=== PATIENT | female | born 1970 | race Caucasian/White ===

== ENCOUNTER 2019-03-06 08:24 | Day surgery (SDC) | payer OTHER ==
[2019-03-04 17:08] VITALS: BMI 35.9
[2019-03-06] MEDS ORDERED: PROPOFOL 20 ML ONE ×2 (10:51)
[2019-03-06] MEDS ORDERED: LIDOCAINE HCL 1%, 10 MG/ML (20ML VIAL) ONE ×2 (10:51→11:01)
[2019-03-06] MEDS ORDERED: MIDAZOLAM HCL 2 MG/2 ML SINGLE DOSE VIAL ONE (10:51)
--- NOTE | 2019-03-06 10:54 | HP ---
History & Physical Update - History History: No Change - Physical Physical: No Change - Assessment Assessment: No Change - Plan Plan: No Change
[2019-03-06] MEDS ORDERED: KETOROLAC TROMETHAMINE 30 MG/1 ML VIAL ONE (10:55)
[2019-03-06] MEDS ORDERED: DEXAMETHASONE SOD PHOSPHATE 4 MG/1 ML VIAL ONE (10:55)
[2019-03-06] MEDS ORDERED: CLINDAMYCIN PHOSPHATE 600 MG/4 ML VIAL ONE ×2 (10:55→11:11)
[2019-03-06] MEDS ORDERED: LIDOCAINE HCL/PF 2% SDV 5ML VIAL ONE (10:56)
[2019-03-06] MEDS ORDERED: CLINDAMYCIN 900 MG PREMIX BAG IVPB ONE (11:15)
[2019-03-06] MEDS ORDERED: LIDOCAINE HCL 1%, 10 MG/ML (20ML VIAL) NR ONE ×2 (11:20)
[2019-03-06] MEDS ORDERED: PROMETHAZINE HCL 25 MG/1 ML VIAL IVPUSH PRN (11:52)
[2019-03-06] MEDS ORDERED: oxyCODONE HCL 5 MG TABLET PO PRN (11:52)
[2019-03-06] MEDS ORDERED: ONDANSETRON 4 MG/2 ML VIAL IVPUSH PRN (11:52)
[2019-03-06] MEDS ORDERED: LACTATED RINGERS SOLUTION 1,000 ML IV SCH (12:00)
[2019-03-06] MEDS ORDERED: ACETAMINOPHEN 325 MG TABLET (FP) ONE (13:15)
--- NOTE | 2019-03-06 13:23 | OP ---
DATE OF OPERATION: 03/06/2019 PREOPERATIVE DIAGNOSIS: Right breast intraductal papilloma. POSTOPERATIVE DIAGNOSIS: Right breast intraductal papilloma. PROCEDURE: Right breast wire localized excisional biopsy. SURGEON: Viktoria Frederick MD ANESTHESIA: General. ESTIMATED BLOOD LOSS: Minimal. COMPLICATIONS: None. This is a sterile procedure. INDICATIONS: Patient had a recent biopsy of the outer part of the right breast that showed an intraductal papilloma. My recommendation was an excision. The procedure was discussed with all of her questions answered. PROCEDURE IN DETAIL: Patient was brought to [facility] in [place], taken to breast imaging where a wire was used to localize the clip in the lateral part of the right breast. She was then brought up to the operating room, and after induction of general anesthesia and IV antibiotics, the right breast was prepped and draped in the usual sterile fashion. The area on the lower outer right breast was anesthetized with 1% lidocaine without epinephrine. A radial incision was made in the lower outer right breast, and a wire was used as a guide to get down to the area. This was excised en bloc and sent as a right breast excisional mass for specimen radiograph. Hemostasis assured with electrocautery. The specimen radiograph showed the clip and wire to be intact within the specimen. This was then sent to Pathology for permanent second. Once hemostasis was assured, the parenchyma was approximated with interrupted 2-0 Vicryl, skin approximated with interrupted 3-0 Vicryl, running 4-0 Prolene. A sterile dressing with Tegaderm and 4 x 4's was applied. She tolerated the procedure well, extubated on the operating room table, taken to recovery in good condition. Olga [id number]
[2019-03-06] MEDS ORDERED: ACETAMINOPHEN 325 MG TABLET (FP) PO PRN (14:57)
[2019-03-06 16:18] VITALS: PULSE 80; TEMP 97.8
[2019-03-06 16:43] VITALS: BP 120/70
--- NOTE | 2019-03-11 12:32 | PATH ---
Surgical Pathology Report Patient Name: YOKASTA RUANO Med. Rec. #: [id number] /Age/Gender: 1970 (Age: 48) / F Account: [id number] Location: [facility] SURGICAL Taken: 03/06/2019 Received: 03/06/2019 Reported: 03/11/2019 Physicians: Viktoria Frederick M.D. Specimen(s) Received RIGHT BREAST EXCISION Clinical History Right breast excision of mass Final Diagnosis BREAST, MASS, RIGHT, EXCISION: SMALL INTRADUCTAL PAPILLOMA. PROLIFERATIVE FIBROCYSTIC CHANGES INCLUDING STROMAL FIBROSIS, CYSTIC APOCRINE METAPLASIA, USUAL DUCTAL HYPERPLASIA, FOCAL SCLEROSING ADENOSIS, AND ASSOCIATED MICROCALCIFICATIONS. PRIOR BIOPSY SITE CHANGES PRESENT. Comment: Immunohistochemical stains performed and interpreted at [facility] show myoepithelial cells are highlighted by P63 and SMM-HC. Positive and negative controls (internal if applicable) show appropriate results. Electronically Signed Naina Sagastume M.D. Gross Description Received fresh on an AccuGrid, labeled "right breast excision" is a 14 g, 4.5 x 4 x 1 cm, bolton-yellow, irregular, portion of fibroadipose tissue with a needle localization wire. The specimen is undesignated. The entire outer surface is inked in blue. There is no skin or nipple present. The specimen is serially sectioned. Sectioning reveals a fibrofatty parenchyma with focal area of hemorrhage. The entire specimen is submitted sequentially in 9 cassettes (fibrous parenchyma with hemorrhage cassettes 4-8). Total formalin fixation time: Approximately 7 hours MLSZ/03/06/2019 sanmac/03/06/2019
== END 2019-03-06 13:45 | disposition home or self-care (01) ==
LOC: JASU-SURG 08:24
PROVIDERS: ATTEND Surgery
PROC: 0HBT0ZX Excision of Right Breast, Open Approach, Diagnostic (ICD-10-PCS; principal; 2019-03-06 10:00)
DX: D24.1 Benign neoplasm of right breast (principal); N60.31 Fibrosclerosis of right breast; N60.11 Diffuse cystic mastopathy of right breast; N60.81 Other benign mammary dysplasias of right breast; N60.21 Fibroadenosis of right breast; N64.89 Other specified disorders of breast
CPT/HCPCS: 19281; 88307-TC; 88341-TC; 88342-TC; 94760

== ENCOUNTER 2020-05-24 08:59 | Day surgery (SDC) | payer OTHER ==
[2020-05-23 15:31] VITALS: BMI 35.9
[2020-05-24] MEDS ORDERED: LIDOCAINE HCL/PF 2% SDV 5ML VIAL ONE (09:34)
[2020-05-24] MEDS ORDERED: PROPOFOL 20 ML ONE ×2 (09:34→09:48)
[2020-05-24] MEDS ORDERED: MIDAZOLAM HCL 2 MG/2 ML SINGLE DOSE VIAL ONE ×5 (09:35→11:35)
[2020-05-24] MEDS ORDERED: EPHEDRINE SULFATE/0.9% NACL/PF 50 MG/10 ML SYRINGE NR ONE (09:49)
[2020-05-24] MEDS ORDERED: SUCCINYLCHOLINE CHLORIDE 200 MG/10 ML SYRINGE ONE (09:49)
[2020-05-24] MEDS ORDERED: LIDOCAINE HCL 1%, 10 MG/ML (20ML VIAL) ONE (10:23)
[2020-05-24] MEDS ORDERED: CLINDAMYCIN PHOSPHATE 600 MG/4 ML VIAL ONE ×2 (11:02→11:11)
[2020-05-24] MEDS ORDERED: CLINDAMYCIN PHOSPHATE 600 MG/4 ML VIAL IVPB ONE (11:10)
[2020-05-24] MEDS ORDERED: ACETAMINOPHEN 1000 MG/100 ML VIAL (NON FORMULARY) IVPB ONE (11:10)
[2020-05-24] MEDS ORDERED: ACETAMINOPHEN INJECTION 100 ML IVPB ONE (11:11)
[2020-05-24] MEDS ORDERED: LIDOCAINE HCL 1% PRESERVATIVE FREE - 30ML VIAL INF ONE (11:57)
[2020-05-24] MEDS ORDERED: ONDANSETRON 4 MG/2 ML VIAL IVPUSH PRN (12:13)
[2020-05-24] MEDS ORDERED: oxyCODONE HCL 5 MG TABLET PO PRN (12:13)
[2020-05-24] MEDS ORDERED: PROMETHAZINE HCL 25 MG/1 ML VIAL IVPUSH PRN (12:13)
[2020-05-24 14:37] VITALS: PULSE 92; TEMP 97.1
[2020-05-24] MEDS ORDERED: oxyCODONE HCL 5 MG TABLET PO ONE (15:35)
[2020-05-24] MEDS ORDERED: oxyCODONE HCL 5 MG TABLET ONE (15:36)
[2020-05-24 16:22] VITALS: BP 96/54
== END 2020-05-24 16:30 | disposition home or self-care (01) ==
LOC: JASU-SURG 08:59
PROVIDERS: ATTEND Surgery
PROC: 0HBT0ZX Excision of Right Breast, Open Approach, Diagnostic (ICD-10-PCS; principal; 2020-05-24 10:00)
DX: N60.21 Fibroadenosis of right breast (principal)
CPT/HCPCS: 19281; 76098-TC-FY; 88307-TC; 88341-TC; 88342-TC; 94760; J0131